=== PATIENT | female | born 1930 | race Caucasian/White ===

== ENCOUNTER 2017-11-15 14:16 | Inpatient (IN) | payer MEDICARE, OTHER ==
[~2017-11-15] VITALS: Ht 152.4 cm; Wt 50.0 kg
[~2017-11-15 14:16] MED LIST: ACET325S8 PO; BACT800T5 PO; TAB-TAB PO
[2017-11-15 14:24] VITALS: BP 157/82; PULSE 87; RESP 18; TEMP 97.9; O2SAT 92
[2017-11-15 15:00] VITALS: BP 132/60; PULSE 82; RESP 18; TEMP 98.3; O2SAT 92
[2017-11-15] MEDS ORDERED: SODIUM CHLORIDE 0.9% FLUSH 10 ML FLUSH IV FLUSH PRN ×2 (15:45→17:15)
--- NOTE | 2017-11-15 15:53 | PD ---
HPI Chief Complaint: Altered Mental Status Time Seen by Provider: 15:36 Travel History International Travel<30 days: No Contact w/Intl Traveler<30days: No Traveled to known affect area: No History of Present Illness HPI 87-year-old female patient with history of dementia presents to the ER today because family thought that she was looking more disoriented in the last few days and she has been having frequent urination. She currently denies any fevers, nausea, vomiting, or any other issues. Modifying Factors: None Associated Signs & Symptoms: Increased disorientation, frequent urination Risk Factors: None PFSH Past Medical History Cancer: Yes (bladder) Neurologic: Yes (weakness lower ext) Past Surgical History Appendectomy: Yes Social History Alcohol Use: Yes (wine nightly) Tobacco Use: No Substance Use: No Allergies-Medications (Allergen,Severity, Reaction): Coded Allergies: codeine (Unverified Adverse Reaction, Severe, Nausea/Vomiting, 06/12/17) hydromorphone (Unverified Adverse Reaction, Mild, Nausea/Vomiting, 06/12/17 ) Reported Meds & Prescriptions Reported Meds & Active Scripts Active Acetaminophen 325 Mg Tab 650 Mg PO Q6HR Bactrim DS (Sulfamethoxazole-Trimethoprim DS) 1 Tab Tab 1 Tab PO BID Reported Multivitamin (Multivitamins) 1 Tab Tab 1 Tab PO DAILY Review of Systems ROS Limitations: Altered Mental Status Physical Exam Narrative GENERAL: Well-developed pleasant elderly white female patient currently in no acute distress. Awake, alert. SKIN: Focused skin assessment warm/dry. HEAD: Atraumatic. Normocephalic. EYES: Pupils equal and round. No scleral icterus. No injection or drainage. ENT: No nasal bleeding or discharge. Mucous membranes pink and moist. NECK: Trachea midline. No JVD. Supple. CARDIOVASCULAR: Regular rate and rhythm. No murmur appreciated. RESPIRATORY: No accessory muscle use. Clear to auscultation. Breath sounds equal bilaterally. GASTROINTESTINAL: Abdomen soft, non-tender, nondistended. Hepatic and splenic margins not palpable. MUSCULOSKELETAL: No obvious deformities. No clubbing. No cyanosis. No edema. NEUROLOGICAL: Awake and alert. No obvious cranial nerve deficits. Motor grossly within normal limits. Normal speech. PSYCHIATRIC: Appropriate mood and affect; insight and judgment normal. Data Data Last Documented VS Vital Signs Date Time Temp Pulse Resp B/P (MAP) Pulse Ox O2 Delivery O2 Flow Rate FiO2 11/15/17 15:00 98.3 82 18 132/60 (84) 92 Room Air Orders Orders Electrocardiogram (11/15/17 15:33) Ammonia (11/15/17 15:33) Complete Blood Count With Diff (11/15/17 15:33) Comprehensive Metabolic Panel (11/15/17 15:33) Troponin I (11/15/17 15:33) Urinalysis - C+S If Indicated (11/15/17 15:33) Lactic Acid Sepsis Protocol (11/15/17 15:33) Blood Culture (11/15/17 15:33) Blood Glucose (11/15/17 15:33) Ecg Monitoring (11/15/17 15:33) Iv Access Insert/Monitor (11/15/17 15:33) Oximetry (11/15/17 15:33) Sodium Chloride 0.9% Flush (Ns Flush) (11/15/17 15:45) Chest, Single Ap (11/15/17 15:36) Urine Culture (11/15/17 15:42) Piperacil-Tazo 4.5 Gm Premix (Zosyn 4.5 (11/15/17 17:01) Admit Order (Ed Use Only) (11/15/17 17:09) Admit To Inpatient (11/15/17 ) Vital Signs (Adult) Q4H (11/15/17 17:08) Activity Oob With Assistance (11/15/17 17:08) Fabric Machine Operator / Telemetry .CONTINUOUS (11/15/17 17:08) Intake + Output QUIN.QSHIFT (11/15/17 17:08) Diet Heart Healthy (11/15/17 Dinner) Sodium Chlor 0.9% 1000 Ml Inj (Ns 1000 M (11/15/17 18:00) Sodium Chloride 0.9% Flush (Ns Flush) (11/15/17 17:15) Sodium Chloride 0.9% Flush (Ns Flush) (11/15/17 21:00) Acetaminophen (Tylenol) (11/15/17 17:15) Ondansetron Inj (Zofran Inj) (11/15/17 17:15) Scd Bilateral/Knee High QUIN.BID (11/15/17 17:08) Naloxone Inj (Narcan Inj) (11/15/17 17:15) Bisacodyl Supp (Dulcolax Supp) (11/15/17 17:15) Inpatient Certification (11/15/17 ) Consult Pt Eval & Tx Oob (11/15/17 17:10) Labs Laboratory Tests Test 11/15/17 15:42 White Blood Count 15.7 TH/MM3 Red Blood Count 4.36 MIL/MM3 Hemoglobin 13.9 GM/DL Hematocrit 41.2 % Mean Corpuscular Volume 94.5 FL Mean Corpuscular Hemoglobin 31.9 PG Mean Corpuscular Hemoglobin Concent 33.8 % Red Cell Distribution Width 13.8 % Platelet Count 190 TH/MM3 Mean Platelet Volume 9.5 FL Neutrophils (%) (Auto) 89.4 % Lymphocytes (%) (Auto) 3.9 % Monocytes (%) (Auto) 6.4 % Eosinophils (%) (Auto) 0.1 % Basophils (%) (Auto) 0.2 % Neutrophils # (Auto) 14.0 TH/MM3 Lymphocytes # (Auto) 0.6 TH/MM3 Monocytes # (Auto) 1.0 TH/MM3 Eosinophils # (Auto) 0.0 TH/MM3 Basophils # (Auto) 0.0 TH/MM3 CBC Comment DIFF FINAL Differential Comment Urine Color YELLOW Urine Turbidity HAZY Urine pH 6.0 Urine Specific [place] 1.015 Urine Protein 30 mg/dL Urine Glucose (UA) NEG mg/dL Urine Ketones 40 mg/dL Urine Occult Blood SMALL Urine Nitrite POS Urine Bilirubin NEG Urine Urobilinogen LESS THAN 2.0 MG/DL Urine Leukocyte Esterase LARGE Urine RBC 6 /hpf Urine WBC 155 /hpf Urine Amorphous Sediment RARE Urine Bacteria MANY /hpf Urine Mucus FEW /lpf Microscopic Urinalysis Comment CATH-CULTURE IND Blood Urea Nitrogen 11 MG/DL Creatinine 0.60 MG/DL Random Glucose 99 MG/DL Total Protein 7.4 GM/DL Albumin 3.7 GM/DL Calcium Level 8.7 MG/DL Alkaline Phosphatase 100 U/L Aspartate Amino Transf (AST/SGOT) 15 U/L Alanine Aminotransferase (ALT/SGPT) 16 U/L Total Bilirubin 0.7 MG/DL Sodium Level 137 MEQ/L Potassium Level 4.4 MEQ/L Chloride Level 101 MEQ/L Carbon Dioxide Level 26.7 MEQ/L Anion Gap 9 MEQ/L Estimat Glomerular Filtration Rate 95 ML/MIN Lactic Acid Level 1.0 mmol/L Ammonia 10 MCMOL/L Troponin I LESS THAN 0.02 NG/ML MDM Medical Decision Making Medical Screen Exam Complete: Yes Emergency Medical Condition: Yes Medical Record Reviewed: Yes Interpretation(s) EKG shows NSR, no ST elevation or depression, and no arrhythmias. No significant T-wave inversions. Laboratory Tests Test 11/15/17 15:42 White Blood Count 15.7 TH/MM3 (4.0-11.0) Neutrophils (%) (Auto) 89.4 % (16.0-70.0) Lymphocytes (%) (Auto) 3.9 % (9.0-44.0) Neutrophils # (Auto) 14.0 TH/MM3 (1.8-7.7) Lymphocytes # (Auto) 0.6 TH/MM3 (1.0-4.8) Monocytes # (Auto) 1.0 TH/MM3 (0-0.9) Urine Turbidity HAZY (CLEAR) Urine Protein 30 mg/dL (NEG-TRACE) Urine Ketones 40 mg/dL (NEG) Urine Occult Blood SMALL (NEG) Urine Nitrite POS (NEG) Urine Leukocyte Esterase LARGE (NEG) Urine RBC 6 /hpf (0-3) Urine WBC 155 /hpf (0-5) Urine Bacteria MANY /hpf (NONE) Urine Mucus FEW /lpf (OCC) Ammonia 10 MCMOL/L (11-32) Troponin I LESS THAN 0.02 NG/ML Last 24 hours Impressions Chest X-Ray 11/15/17 1536 Signed Impressions: Service Date/Time: October 15:50 - CONCLUSION: Normal examination. Killian Yoder MD Differential Diagnosis Increased disorientation, frequent urination: UTI versus metabolic issues versus medication side effect Narrative Course Lab work shows significant UTI, leukocytosis, and there is concern of underlying sepsis per IV and spouse were initiated after cultures were drawn. Case is discussed with Dr. Steele for admission. Diagnosis Primary Impression: UTI (urinary tract infection) Additional Impression: Sepsis Admitting Information Admitting Physician Requests: Admit Deepthi Li MD Nov 15, 2017 15:53
[2017-11-15 16:05] LABS: AMORPHOUS SEDIMENT, URINE RARE; BACTERIA, URINE MANY /hpf; BASOPHIL % 0.2 % (0.0-2.0); BILIRUBIN, URINE NEG (NEG); BLOOD, URINE SMALL (NEG); EOSINOPHIL % 0.1 % (0.0-4.0); GLUCOSE,URINE NEG (NEG); HEMATOCRIT 41.2 % (35.0-46.0); HEMOGLOBIN 13.9 GM/DL (11.6-15.3); KETONE, URINE 40 mg/dL (NEG); LYMPH % 3.9 % (9.0-44.0); LYMPHOCYTE # 0.6 TH/MM3 (1.0-4.8); MEAN CELL VOLUME 94.5 FL (80.0-100.0); MEAN CORPUSCULAR HEMOGLOBIN 31.9 PG (27.0-34.0); MEAN CORPUSCULAR HGB CONC 33.8 % (32.0-36.0); MEAN PLATELET VOLUME 9.5 FL (7.0-11.0); MONO % 6.4 % (0.0-8.0); MUCUS URINE FEW /lpf (OCC); NEUT % 89.4 % (16.0-70.0); NITRITE,URINE POS (NEG); PLATELET COUNT 190 TH/MM3 (150-450); RED BLOOD COUNT 4.36 MIL/MM3 (4.00-5.30); RED CELL DISTRIBUTION WIDTH 13.8 % (11.6-17.2); URINE COLOR YELLOW (YELLW/STRAW); URINE LEUKOCYTE ESTERASE LARGE (NEG); WHITE BLOOD COUNT 15.7 TH/MM3 (4.0-11.0)
--- NOTE | 2017-11-15 16:08 | RADRPT ---
EXAM DATE/TIME: 11/15/2017 15:50 [facility] COMPARISON: CHEST SINGLE AP, May 23, 2016, 12:46. INDICATIONS : General weakness. MEDICAL HISTORY : Bladder cancer. SURGICAL HISTORY : Appendectomy. Left total knee. ENCOUNTER: Initial ACUITY: 1 day PAIN SCORE: 0/10 LOCATION: Bilateral chest FINDINGS: A single view of the chest demonstrates the lungs to be symmetrically aerated without evidence of mas s, infiltrate or effusion. The cardiomediastinal contours are unremarkable. Osseous structures are intact. CONCLUSION: Normal examination. Killian Yoder MD on November 15, 2017 at 16:06 Board Certified Radiologist. This report was verified electronically.
[2017-11-15 16:45] LABS: ALBUMIN 3.7 GM/DL (3.4-5.0); ALT (GPT) 16 U/L (10-53); AST (GOT) 15 U/L (15-37); BICARBONATE 26.7 MEQ/L (21.0-32.0); BLOOD UREA NITROGEN 11 MG/DL (7-18); CALCIUM 8.7 MG/DL (8.5-10.1); CHLORIDE 101 MEQ/L (98-107); GLOMERULAR FILTRATION RATE 95 ML/MIN (>89); GLUCOSE,RANDOM 99 MG/DL (74-106); SODIUM (NA) 137 MEQ/L (136-145)
[2017-11-15 16:56] LABS: ALKALINE PHOSPHATASE 100 U/L (45-117); TOTAL BILIRUBIN ADULT 0.7 MG/DL (0.2-1.0); TOTAL PROTEIN 7.4 GM/DL (6.4-8.2); TROPONIN I LESS THAN 0.02 NG/ML (0.02-0.05)
[2017-11-15] MEDS ORDERED: PIPERACIL-TAZO 4.5 GM PREMIX 100 ML IV STA (17:01)
[2017-11-15] MEDS ORDERED: BISACODYL 10 MG SUPP RECTAL PRN (17:15)
[2017-11-15] MEDS ORDERED: ACETAMINOPHEN 325 MG TAB PO PRN (17:15)
[2017-11-15] MEDS ORDERED: NALOXONE HCL 0.4 MG/ML AMP IV PUSH PRN (17:15)
[2017-11-15] MEDS ORDERED: ONDANSETRON HCL 4 MG/2 ML VIAL IVP PRN (17:15)
[2017-11-15 17:30] VITALS: BP 137/74; PULSE 92; RESP 24; O2SAT 93
--- NOTE | 2017-11-15 18:44 | HHI.HP ---
[facility] Service [place] [facility] Primary Care Physician Aston Landry MD Admission Diagnosis UTI/altered mental status Diagnoses: Chief Complaint: Altered mental status Travel History International Travel<30 Days: No Contact w/Intl Traveler <30 Da: No Traveled to Known Affected Are: No History of Present Illness This is a 87-year-old female with a history of nonspecific degenerative neurological disease, difficulty ambulating, and dementia who presented with altered mental status. Patient is a poor historian secondary to dementia so history taken from daughter. Per patient's daughter patient at baseline has difficulty walking and is mainly in a wheelchair. She stated that when she tried to assist patient to the commode she was not able to follow any commands palpation to the ER. Patient has no complaints. She did not know why she was in ER. Patient was able to tell me her name but not the date and location. She does answer questions appropriately. Per patient's daughter after she was given antibiotics her altered mental status seems to resolve. In the emergency department workup was obtained in which UA suggest UTI. She was given a dose of Zosyn. All other review system reviewed and negative. 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 difficulty ambulating dementia History of bladder cancer in remission Past Surgical History Left knee replacement Appendectomy Reported Medications Reported Meds & Active Scripts Active Acetaminophen 325 Mg Tab 650 Mg PO Q6HR Bactrim DS (Sulfamethoxazole-Trimethoprim DS) 1 Tab Tab 1 Tab PO BID Reported Multivitamin (Multivitamins) 1 Tab Tab 1 Tab PO DAILY Allergies: Coded Allergies: codeine (Unverified Adverse Reaction, Severe, Nausea/Vomiting, 06/12/17) hydromorphone (Unverified Adverse Reaction, Mild, Nausea/Vomiting, 06/12/17 ) Active Ordered Medications Current Medications Sodium Chloride (NS Flush) 2 ml UNSCH PRN IV FLUSH FLUSH AFTER USING IV ACCESS ; Start 11/15/17 at 15:45; Stop 11/15/17 at 17:15; Status DC Piperacillin Sod/ Tazobactam Sod 100 ml @ 200 mls/hr ONCE STAT IV Last administered on 11/15/17at 17:12; Start 11/15/17 at 17:01; Stop 11/15/17 at 17:30 ; Status DC Sodium Chloride 1,000 ml @ 100 mls/hr Q10H IV ; Start 11/15/17 at 18:00 Sodium Chloride (NS Flush) 2 ml UNSCH PRN IV FLUSH FLUSH AFTER USING IV ACCESS ; Start 11/15/17 at 17:15 Sodium Chloride (NS Flush) 2 ml BID IV FLUSH ; Start 11/15/17 at 21:00 Acetaminophen (Tylenol) 650 mg Q4H PRN PO TEMP > 100.4; Start 11/15/17 at 17:15 Ondansetron HCl (Zofran Inj) 4 mg Q6H PRN IVP NAUSEA OR VOMITING; Start at 17:15 Naloxone HCl (Narcan Inj) 0.4 mg UNSCH PRN IV PUSH SEE LABEL COMMENTS; Start at 17:15 Bisacodyl (Dulcolax Supp) 10 mg DAILY PRN RECTAL SEVERE CONSITIPATION; Start at 17:15 Family History No past family history. Social History Patient lives at home with 24-hour assistance. She is homebound. Drinks a couple glasses of wine daily. Deny any tobacco or illicit drug use. Physical Exam Vital Signs Vital Signs Date Time Temp Pulse Resp B/P (MAP) Pulse Ox O2 Delivery O2 Flow Rate FiO2 11/15/17 17:30 92 24 137/74 (95) 93 Room Air 11/15/17 15:00 98.3 82 18 132/60 (84) 92 Room Air 11/15/17 14:24 97.9 87 18 157/82 (107) 92 Physical Exam GENERAL: This is a well-nourished, well-developed patient, in no apparent distress. SKIN: No rashes, ecchymoses or lesions. Cool and dry. HEAD: Atraumatic. Normocephalic. No temporal or scalp tenderness. EYES: Pupils equal round and reactive. Extraocular motions intact. No scleral icterus. No injection or drainage. ENT: Nose without bleeding, purulent drainage or septal hematoma. Throat without erythema, tonsillar hypertrophy or exudate. Uvula midline. Airway patent. NECK: Trachea midline. No JVD or lymphadenopathy. Supple, nontender, no meningeal signs. CARDIOVASCULAR: Regular rate and rhythm without murmurs, gallops, or rubs. RESPIRATORY: Clear to auscultation. Breath sounds equal bilaterally. No wheezes , rales, or rhonchi. GASTROINTESTINAL: Abdomen soft, non-tender, nondistended. No hepato-splenomegaly , or palpable masses. No guarding. MUSCULOSKELETAL: Extremities without clubbing, cyanosis, or edema. No joint tenderness, effusion, or edema noted. No calf tenderness. Negative Homans sign bilaterally. NEUROLOGICAL: Awake and alert. Cranial nerves II through XII intact. Motor and sensory grossly within normal limits. Five out of 5 muscle strength in all muscle groups. Normal speech. Laboratory Laboratory Tests Test 11/15/17 15:42 White Blood Count 15.7 Red Blood Count 4.36 Hemoglobin 13.9 Hematocrit 41.2 Mean Corpuscular Volume 94.5 Mean Corpuscular Hemoglobin 31.9 Mean Corpuscular Hemoglobin Concent 33.8 Red Cell Distribution Width 13.8 Platelet Count 190 Mean Platelet Volume 9.5 Neutrophils (%) (Auto) 89.4 Lymphocytes (%) (Auto) 3.9 Monocytes (%) (Auto) 6.4 Eosinophils (%) (Auto) 0.1 Basophils (%) (Auto) 0.2 Neutrophils # (Auto) 14.0 Lymphocytes # (Auto) 0.6 Monocytes # (Auto) 1.0 Eosinophils # (Auto) 0.0 Basophils # (Auto) 0.0 CBC Comment DIFF FINAL Differential Comment Urine Color YELLOW Urine Turbidity HAZY Urine pH 6.0 Urine Specific [place] 1.015 Urine Protein 30 Urine Glucose (UA) NEG Urine Ketones 40 Urine Occult Blood SMALL Urine Nitrite POS Urine Bilirubin NEG Urine Urobilinogen LESS THAN 2.0 Urine Leukocyte Esterase LARGE Urine RBC 6 Urine WBC 155 Urine Amorphous Sediment RARE Urine Bacteria MANY Urine Mucus FEW Microscopic Urinalysis Comment CATH-CULTURE IND Blood Urea Nitrogen 11 Creatinine 0.60 Random Glucose 99 Total Protein 7.4 Albumin 3.7 Calcium Level 8.7 Alkaline Phosphatase 100 Aspartate Amino Transf (AST/SGOT) 15 Alanine Aminotransferase (ALT/SGPT) 16 Total Bilirubin 0.7 Sodium Level 137 Potassium Level 4.4 Chloride Level 101 Carbon Dioxide Level 26.7 Anion Gap 9 Estimat Glomerular Filtration Rate 95 Lactic Acid Level 1.0 Ammonia 10 Troponin I LESS THAN 0.02 Date/Time Source Procedure Growth Status 11/15/17 15:42 Blood Peripheral Aerobic Blood Culture Pending Received 11/15/17 15:42 Blood Peripheral Anaerobic Blood Culture Pending Received 11/15/17 15:42 Urine Catheterized Urine Urine Culture Pending Received Result Diagram: 11/15/17 1542 11/15/17 1542 Imaging Last Impressions Chest X-Ray 11/15/17 1536 Signed Impressions: Service Date/Time: October 15:50 - CONCLUSION: Normal examination. MD Khalida Guerra VTE Risk Assessment Khalida VTE Risk Assessment: Mod/High Risk (score >= 2) Caprini Risk Assessment Model Point Value = 1 Point Value = 2 Point Value = 3 Point Value = 5 Age 41-60 Minor surgery BMI > 25 kg/m2 Swollen legs Varicose veins or History of unexplained or recurrent spontaneous Oral contraceptives or hormone replacement Sepsis (< 1 month) Serious lung disease, including pneumonia (< 1 month) Abnormal pulmonary function Acute myocardial infarction Congestive heart failure (< 1 month) History of inflammatory bowel disease Medical patient at bed rest Age 61-74 Arthroscopic surgery Major open surgery (> 45 min) Laparoscopic surgery (> 45 min) Malignancy Confined to bed (> 72 hours) Immobilizing plaster cast Central venous access Age >= 75 History of VTE Family history of VTE Factor V Leiden Prothrombin [id number] Lupus anticoagulant Anticardiolipin antibodies Elevated serum homocysteine Heparin-induced thrombocytopenia Other congenital or acquired thrombophilia Stroke (< 1 month) Elective arthroplasty Hip, pelvis, or leg fracture Acute spinal cord injury (< 1 month) Prophylaxis Regimen Total Risk Factor Score Risk Level Prophylaxis Regimen 0-1 Low Early ambulation 2 Moderate Order ONE of the following: *Sequential Compression Device (SCD) *Heparin 5000 units SQ BID 3-4 Higher Order ONE of the following medications: *Heparin 5000 units SQ TID *Enoxaparin/Lovenox 40 mg SQ daily (WT < 150 kg, CrCl > 30 mL/min) *Enoxaparin/Lovenox 30 mg SQ daily (WT < 150 kg, CrCl > 10-29 mL/min) *Enoxaparin/Lovenox 30 mg SQ BID (WT < 150 kg, CrCl > 30 mL/min) AND/OR *Sequential Compression Device (SCD) 5 or more Highest Order ONE of the following medications: *Heparin 5000 units SQ TID (Preferred with Epidurals) *Enoxaparin/Lovenox 40 mg SQ daily (WT < 150 kg, CrCl > 30 mL/min) *Enoxaparin/Lovenox 30 mg SQ daily (WT < 150 kg, CrCl > 10-29 mL/min) *Enoxaparin/Lovenox 30 mg SQ BID (WT < 150 kg, CrCl > 30 mL/min) AND *Sequential Compression Device (SCD) Assessment and Plan Assessment and Plan 87-year-old female with nonspecific degenerative neurological disease, difficulty ambulating, and dementia who presented with altered mental status. Metabolic encephalopathy -Chest x-ray negative. Labs reviewed significant for leukocytosis and UA suggesting UTI. Most likely symptoms secondary to UTI. Altered mental status seems to resolve quickly. Back to baseline. -Patient given a dose of Zosyn in the ED. Will start Rocephin pending urine cultures. Blood cultures were obtained in the ED. UTI -On Rocephin pending urine cultures. Macular degenerative disease/difficulty ambulating/dementia -Resume home medication. -Will give Seroquel when necessary for agitation if needed since patient does have a history of sundowning. DVT prophylaxis -Lovenox. Code Status CODE STATUS discussed with patient and daughter. Patient is full code. Discussed Condition With Patient and daughter. Physician Certification 2 Midnight Certification Type: Admission for Inpatient Services Order for Inpatient Services The services are ordered in accordance with Medicare regulations or non- Medicare payer requirements, as applicable. In the case of services not specified as inpatient-only, they are appropriately provided as inpatient services in accordance with the 2-midnight benchmark. Estimated LOS (days): 2 2 days is the estimated time the patient will need to remain in the hospital, assuming treatment plan goals are met and no additional complications. Post-Hospital Plan: Citlali Bob MD Nov 15, 2017 18:44
[2017-11-15] MEDS: MULTIVITAMIN TAB PO SCH (19:24)
--- NOTE | 2017-11-15 19:43 | EKG ---
Date Performed: 11/15/2017 Time Performed: 16:12:37 PTAGE: 87 years EKG: Sinus rhythm WITH OCCASIONAL SUPRAVENTRICULAR PREMATURE COMPLEXES POSSIBLE ANTERIOR MYOCARDIAL INFARCTION BORDERL INE ECG Compared to prior electrocardiogram, Premature atrial contraction are now present PREVIOUS TRACING : 05/23/2016 11.55 DOCTOR: Cyrus Tomlinson Interpretating Date/Time 11/15/2017 19:42:35
[2017-11-15 20:29] VITALS: BP 147/69; PULSE 95; RESP 16; O2SAT 94
[2017-11-15] MEDS: ENOXAPARIN SODIUM 40 MG/0.4 ML SYRINGE SQ SCH (20:43)
[2017-11-15] MEDS: cefTRIAXone INJ 1,000 MG in SODIUM CHLORIDE 0.9% INJ 100 ML IV SCH (20:44)
[2017-11-15] MEDS: SODIUM CHLORIDE 0.9% FLUSH 10 ML FLUSH IV FLUSH SCH (20:48)
[2017-11-15 23:24] VITALS: BP 132/69; PULSE 83; RESP 17; TEMP 99.4; O2SAT 95
[2017-11-15] MEDS: SODIUM CHLOR 0.9% 1000 ML INJ 1,000 ML IV SCH (23:56)
[2017-11-16] VITALS (10 sets, daily range): BP systolic 117–136; BP diastolic 57–67; PULSE 75–109; RESP 17–19; TEMP 97.7–99.4; O2SAT 92–94
[2017-11-16] MEDS: SODIUM CHLOR 0.9% 1000 ML INJ 1,000 ML IV SCH ×2 (03:15→14:57)
[2017-11-16 06:15] LABS: HEMATOCRIT 37.4 % (35.0-46.0); HEMOGLOBIN 12.9 GM/DL (11.6-15.3); MEAN CELL VOLUME 95.3 FL (80.0-100.0); MEAN CORPUSCULAR HEMOGLOBIN 32.8 PG (27.0-34.0); MEAN CORPUSCULAR HGB CONC 34.4 % (32.0-36.0); MEAN PLATELET VOLUME 10.3 FL (7.0-11.0); PLATELET COUNT 185 TH/MM3 (150-450); RED BLOOD COUNT 3.92 MIL/MM3 (4.00-5.30); RED CELL DISTRIBUTION WIDTH 13.8 % (11.6-17.2)
[2017-11-16 06:39] LABS: CALCIUM 8.8 MG/DL (8.5-10.1); CREATININE 0.53 MG/DL (0.50-1.00)
[2017-11-16] MEDS: SODIUM CHLORIDE 0.9% FLUSH 10 ML FLUSH IV FLUSH SCH ×2 (09:00→20:27)
[2017-11-16] MEDS: MULTIVITAMIN TAB PO SCH (09:58)
--- NOTE | 2017-11-16 18:09 | HHI.PR ---
Subjective Remarks She says she is feeling better today. Family reports the confusion is improved. Weakness has improved as well. She denies any dysuria. Discussed with family reports the patient has 24 7 caregivers at home. Appreciate PT assistance. Objective Vital Signs Date Time Temp Pulse Resp B/P (MAP) Pulse Ox O2 Delivery O2 Flow Rate FiO2 11/16/17 15:03 99.0 84 18 131/64 (86) 94 11/16/17 11:15 97.7 80 18 118/62 (80) 92 11/16/17 07:50 75 11/16/17 07:04 99.3 95 18 118/57 (77) 94 11/16/17 04:19 99.4 93 17 117/62 (80) 94 11/16/17 03:59 109 11/15/17 23:24 99.4 83 17 132/69 (90) 95 11/15/17 20:29 95 16 147/69 (95) 94 Room Air I/O 11/15/17 11/15/17 11/15/17 11/16/17 11/16/17 11/16/17 07:00 15:00 23:00 07:00 15:00 23:00 Intake Total 200 ml Balance 200 ml Intake IV Total 200 ml # Voids 2 Result Diagram: 11/16/17 0347 11/16/17 034 Objective Remarks GENERAL: Patient sitting up in bed. Appears comfortable. SKIN: Warm and dry. HEAD: Normocephalic. EYES: No scleral icterus. No injection or drainage. NECK: Supple, trachea midline. No JVD. CARDIOVASCULAR: Regular rate and rhythm without murmurs, gallops, or rubs. RESPIRATORY: Breath sounds equal bilaterally. No accessory muscle use. GASTROINTESTINAL: Abdomen soft, non-tender, nondistended. MUSCULOSKELETAL: No cyanosis, or edema. BACK: Nontender without obvious deformity. No CVA tenderness. A/P Assessment and Plan 87-year-old female with nonspecific degenerative neurological disease, difficulty ambulating, and dementia who presented with altered mental status. //Severe sepsis on admission -With leukocytosis, tachycardia, UTI on admission. encephalopathy -Continue Rocephin. Improving Follow-up cultures and sensitivities //UTI -On Rocephin pending urine cultures. = Follow-up cultures and sensitivities. Continue antibiotics //Metabolic encephalopathy Secondary to sepsis as above. Appears resolved at this time. //Macular degenerative disease/difficulty ambulating/dementia -Resume home medication. -Will give Seroquel when necessary for agitation if needed since patient does have a history of sundowning. DVT prophylaxis -Lovenox. Code Status CODE STATUS discussed with patient and daughter. Patient is full code. Discharge Planning Discharge home in 1-2 days once we have sensitivities on urine. Bruce Cruz MD Nov 16, 2017 18:09
[2017-11-16] MEDS: cefTRIAXone INJ 1,000 MG in SODIUM CHLORIDE 0.9% INJ 100 ML IV SCH (20:27)
[2017-11-16] MEDS: ENOXAPARIN SODIUM 40 MG/0.4 ML SYRINGE SQ SCH (20:27)
[2017-11-17] VITALS (8 sets, daily range): BP systolic 125–136; BP diastolic 62–73; PULSE 67–78; RESP 16–20; TEMP 98–98.3; O2SAT 93–97
[2017-11-17] MEDS: SODIUM CHLORIDE 0.9% FLUSH 10 ML FLUSH IV FLUSH SCH (09:00)
[2017-11-17] MEDS: MULTIVITAMIN TAB PO SCH (09:41)
[2017-11-17] MEDS: SODIUM CHLOR 0.9% 1000 ML INJ 1,000 ML IV SCH ×2 (09:42)
[2017-11-17] MEDS ORDERED: CIPR250T52 PO (16:06)
--- NOTE | 2017-11-17 16:26 | HHI.FF ---
Face to Face Verification Diagnosis: (1) UTI (urinary tract infection) (2) Unsteady gait Physical Therapy Order: Evaluate and Treat Home Health Nursing Order: Nursing assessment with vital signs Home Health Aide Order: To Assist In: Bathing and personal care I have seen patient Jillian Garza on 11/17/17. My clinical findings support the need for the requested home health care services because: Deconditioned w/ increased weakness Med compliance is questionable I certify that my clinical findings support that this patient is homebound because: Unsafe to leave home unassisted resume home health Bruce Cruz MD Nov 17, 2017 16:26
[2017-11-17] MEDS ORDERED: CIPROFLOXACIN 500 MG TAB PO ONE (16:45)
--- NOTE | 2017-11-17 16:48 | HHI.PR ---
Subjective Remarks Patient says she is feeling well. Denies any chest pain shortness breath. Denies any nausea or vomiting. Denies any dysuria. Discussed with daughter over the phone who agrees with discharge home with [address] [place] [id number]. Objective Vital Signs Date Time Temp Pulse Resp B/P (MAP) Pulse Ox O2 Delivery O2 Flow Rate FiO2 11/17/17 16:14 98.1 67 18 135/71 (92) 93 11/17/17 15:07 74 11/17/17 15:06 Room Air 11/17/17 11:09 98.0 74 18 136/73 (94) 94 11/17/17 09:40 78 11/17/17 07:35 98.3 74 20 125/62 (83) 97 11/17/17 04:25 98.3 72 16 133/65 (87) 95 11/16/17 23:46 98.6 93 19 136/66 (89) 94 11/16/17 19:54 99.2 85 17 131/67 (88) 94 11/16/17 18:01 80 I/O 11/16/17 11/16/17 11/16/17 11/17/17 11/17/17 11/17/17 07:00 15:00 23:00 07:00 15:00 23:00 Intake Total 0 ml Balance 0 ml Intake Oral 0 ml # Voids 3 Result Diagram: 11/16/1734611/16/17346 Objective Remarks GENERAL: Patient sitting up in bed. Appears comfortable. Exam unchanged. SKIN: Warm and dry. HEAD: Normocephalic. EYES: No scleral icterus. No injection or drainage. NECK: Supple, trachea midline. No JVD. CARDIOVASCULAR: Regular rate and rhythm without murmurs, gallops, or rubs. RESPIRATORY: Breath sounds equal bilaterally. No accessory muscle use. GASTROINTESTINAL: Abdomen soft, non-tender, nondistended. MUSCULOSKELETAL: No cyanosis, or edema. BACK: Nontender without obvious deformity. No CVA tenderness. A/P Assessment and Plan 87-year-old female with nonspecific degenerative neurological disease, difficulty ambulating, and dementia who presented with altered mental status. //Severe sepsis on admission -With leukocytosis, tachycardia, UTI on admission. encephalopathy -Continue Rocephin. Improving -Afebrile. Urine Cultures with Escherichia coli sensitive to Cipro. Only resistant to ampicillin. //UTI -On Rocephin pending urine cultures. = Follow-up cultures and sensitivities. Continue antibiotics = Cultures as above. Continue Cipro to complete treatment course. //Metabolic encephalopathy //With history of chronic dementia per family. Secondary to sepsis as above. Appears resolved at this time. //Macular degenerative disease/difficulty ambulating/dementia -Resume home medication. -Will give Seroquel when necessary for agitation if needed since patient does have a history of sundowning. DVT prophylaxis -Lovenox. Code Status CODE STATUS discussed with patient and daughter. Patient is full code. Discharge Planning Discharge home with home health. Bruce Cruz MD Nov 17, 2017 16:48
--- NOTE | 2017-11-17 16:51 | HHI.DS ---
Discharge Summary Admission Date Nov 15, 2017 at 17:11 Discharge Date: Nov 17, 2017 Admitting Diagnosis UTI/altered mental status (1) Sepsis ICD Code: A41.9 - Sepsis, unspecified organism Status: Acute (2) UTI (urinary tract infection) ICD Code: N39.0 - Urinary tract infection, site not specified Status: Acute Procedures No invasive procedures. Brief History - From Admission This is a 87-year-old female with a history of nonspecific degenerative neurological disease, difficulty ambulating, and dementia who presented with altered mental status. Patient is a poor historian secondary to dementia so history taken from daughter. Per patient's daughter patient at baseline has difficulty walking and is mainly in a wheelchair. She stated that when she tried to assist patient to the commode she was not able to follow any commands palpation to the ER. Patient has no complaints. She did not know why she was in ER. Patient was able to tell me her name but not the date and location. She does answer questions appropriately. Per patient's daughter after she was given antibiotics her altered mental status seems to resolve. In the emergency department workup was obtained in which UA suggest UTI. She was given a dose of Zosyn. All other review system reviewed and negative. CBC/BMP: 11/16/17 0347 11/16/17 0347 Significant Findings Laboratory Tests Test 11/15/17 15:42 11/16/17 03:47 White Blood Count 15.7 TH/MM3 (4.0-11.0) 12.0 TH/MM3 (4.0-11.0) Neutrophils (%) (Auto) 89.4 % (16.0-70.0) Lymphocytes (%) (Auto) 3.9 % (9.0-44.0) Neutrophils # (Auto) 14.0 TH/MM3 (1.8-7.7) Lymphocytes # (Auto) 0.6 TH/MM3 (1.0-4.8) Monocytes # (Auto) 1.0 TH/MM3 (0-0.9) Urine Turbidity HAZY (CLEAR) Urine Protein 30 mg/dL (NEG-TRACE) Urine Ketones 40 mg/dL (NEG) Urine Occult Blood SMALL (NEG) Urine Nitrite POS (NEG) Urine Leukocyte Esterase LARGE (NEG) Urine RBC 6 /hpf (0-3) Urine WBC 155 /hpf (0-5) Urine Bacteria MANY /hpf (NONE) Urine Mucus FEW /lpf (OCC) Ammonia 10 MCMOL/L (11-32) Troponin I LESS THAN 0.02 NG/ML Red Blood Count 3.92 MIL/MM3 (4.00-5.30) Imaging Last Impressions Chest X-Ray 11/15/17 7826 Signed Impressions: Service Date/Time: October 15:50 - CONCLUSION: Normal examination. Killian Yoder MD Hospital Course 87-year-old female with nonspecific degenerative neurological disease, difficulty ambulating, and dementia who presented with confusion, leukocytosis, tachycardia, with UTI on urinalysis, which eventually grew out Escherichia coli sensitive to Cipro. Patient was treated with broad-spectrum antibiotics with improvement in sepsis, returned to baseline mental status. Physical therapy saw the patient and recommends shelter facility, however patient has 24 7 nursing care at home. Per discussion with family, will discharge home with home health. Ciprofloxacin to complete treatment course. For problem-based summary from most recent progress note, please see below.. //Severe sepsis on admission -With leukocytosis, tachycardia, UTI on admission. encephalopathy -Continue Rocephin. Improving -Afebrile. Urine Cultures with Escherichia coli sensitive to Cipro. Only resistant to ampicillin. //UTI -On Rocephin pending urine cultures. = Follow-up cultures and sensitivities. Continue antibiotics = Cultures as above. Continue Cipro to complete treatment course. //Metabolic encephalopathy //With history of chronic dementia per family. Secondary to sepsis as above. Appears resolved at this time. //Macular degenerative disease/difficulty ambulating/dementia -Resume home medication. -Will give Seroquel when necessary for agitation if needed since patient does have a history of . DVT prophylaxis -Lovenox. Code Status CODE STATUS discussed with patient and daughter. Patient is full code. Pt Condition on Discharge: Good Discharge Disposition: Disch w/ Home Health Serv Discharge Time: > 30 minutes Discharge Instructions DIET: Follow Instructions for: Heart Healthy Diet Activities you can perform: Regular-No Restrictions Follow up Referrals: PCP Follow-up - 1 Week with Aston Landry MD New Medications: Ciprofloxacin (Cipro) 250 Mg Tab 250 MG PO BID for Infection for 9 Days, #18 TAB 0 Refills Continued Medications: Acetaminophen (Tylenol) 325 Mg Tab 650 MG PO Q6HR, #20 TAB Multiple Vitamin (Multivitamin) 1 Tab Tab 1 TAB PO DAILY, TAB Discontinued Medications: Sulfamethoxazole-Trimethoprim DS (Bactrim DS) 1 Tab Tab 1 TAB PO BID, #20 TAB Bruce Cruz MD Nov 17, 2017 16:51
[2017-11-17] MEDS ORDERED: CIPROFLOXACIN 250 MG TAB PO SCH (21:00)
[2017-11-18] MEDS ORDERED: CIPROFLOXACIN 250 MG TAB PO SCH (09:00)
== END 2017-11-17 18:45 | disposition home health service (06) | DRG 871 ==
LOC: NEPE 14:16 → NEDA 17:11 → NEDH 21:11 → NEPFCDU 22:37 → N04B 11-17 13:50
PROVIDERS: ADMIT Internal Medicine; ATTEND Internal Medicine
DX: A41.51 Sepsis due to Escherichia coli [E. coli] (principal); G93.41 Metabolic encephalopathy; F03.90 Unspecified dementia, unspecified severity, without behavioral disturbance, psychotic disturbance, mood disturbance, and anxiety; N39.0 Urinary tract infection, site not specified; R65.20 Severe sepsis without septic shock; B96.20 Unspecified Escherichia coli [E. coli] as the cause of diseases classified elsewhere; R26.2 Difficulty in walking, not elsewhere classified; Z96.652 Presence of left artificial knee joint; G70.9 Myoneural disorder, unspecified; Z16.11 Resistance to penicillins; R00.0 Tachycardia, unspecified; R53.1 Weakness; Z85.51 Personal history of malignant neoplasm of bladder
CPT/HCPCS: 71045; 80048; 80053; 81001; 82140; 83605; 84484; 85025; 85027; 87040; 87077; 87086; 87186; 93005; 99285; J0696; J1650; J2543; J7030

== ENCOUNTER 2018-02-08 21:46 | Emergency (ER) | payer MEDICARE, OTHER ==
[~2018-02-08 21:46] MED LIST changes: -BACT800T5 PO; +CIPR250T52 PO
[2018-02-08 22:14] VITALS: BP 138/86; PULSE 94; RESP 20; TEMP 98.7; O2SAT 95
[2018-02-08] MEDS ORDERED: guaiFENesin/DEXTROMETHORPHAN 200 MG/20 MG/10 ML CUP PO ONE (23:30)
--- NOTE | 2018-02-08 23:32 | PD ---
HPI Chief Complaint: Respiratory Symptoms Time Seen by Provider: 23:19 Travel History International Travel<30 days: No Contact w/Intl Traveler<30days: No Traveled to known affect area: No History of Present Illness HPI The patient is an 87-year-old female that is had a cough and nasal congestion. She has had this for several days. She gets home health care 24 7 at her home and a nurse was called out and found nasal congestion. She was given something for nasal congestion. The patient vomited after she took this medicine and refused to take anymore. The patient is here because of the refusal to take medicine at home. She has not had any fever or respiratory distress. PFSH Past Medical History Anxiety: No Depression: No Cancer: Yes (bladder) Cardiovascular Problems: No Cerebrovascular Accident: No Endocrine: No Genitourinary: Yes Immune Disorder: No Musculoskeletal: No Neurologic: Yes (weakness lower ext (peridoically)) Psychiatric: Yes (dementia) Respiratory: No Migraines: No Seizures: No Past Surgical History Abdominal Surgery: Yes (appendectomy) Appendectomy: Yes Cardiac Surgery: No Ear Surgery: No Endocrine Surgery: No Eye Surgery: No Genitourinary Surgery: No Gynecologic Surgery: No Oral Surgery: No Thoracic Surgery: No Social History Alcohol Use: Yes (wine nightly) Tobacco Use: No Substance Use: No Allergies-Medications (Allergen,Severity, Reaction): Coded Allergies: codeine (Unverified Adverse Reaction, Severe, Nausea/Vomiting, 02/09/18) hydromorphone (Unverified Adverse Reaction, Mild, Nausea/Vomiting, 02/09/18 ) Reported Meds & Prescriptions Reported Meds & Active Scripts Active Reported Multi Vitamin Daily (Multiple Vitamin) 1 Tab Tab Review of Systems Except as stated in HPI: all other systems reviewed are Neg Physical Exam Narrative GENERAL: Well-nourished, alert and oriented well-developed patient in no respiratory distress. Her vital signs are normal except for a pulse rate of 94.. SKIN: Focused skin assessment warm/dry. HEAD: Normocephalic. EYES: No scleral icterus. No injection or drainage. NECK: Supple, trachea midline. No JVD or lymphadenopathy. CARDIOVASCULAR: Regular rate and rhythm without murmurs, gallops, or rubs. RESPIRATORY: Breath sounds equal bilaterally. No accessory muscle use. Lungs clear to auscultation bilaterally. GASTROINTESTINAL: Abdomen soft, non-tender, nondistended. MUSCULOSKELETAL: No cyanosis, or edema. BACK: Nontender without obvious deformity. No CVA tenderness. Data Data Last Documented VS Vital Signs Date Time Temp Pulse Resp B/P (MAP) Pulse Ox O2 Delivery O2 Flow Rate FiO2 02/08/18 23:55 20 95 02/08/18 22:14 98.7 94 138/86 (103) Orders Orders Guaifen-Dm 200-20 Mg/10 Ml Liq (Robituss (02/08/18 23:30) Chest, Pa & Lat (02/08/18 23:32) MDM Medical Decision Making Medical Screen Exam Complete: Yes Emergency Medical Condition: Yes Medical Record Reviewed: Yes Interpretation(s) The chest x-ray shows no acute cardiopulmonary disease. Differential Diagnosis Pneumonia, bronchitis, aspiration pneumonia, noncompliance to medication, viral syndrome Narrative Course The patient took the cough syrup without a problem. The chest x-ray does not show any evidence of aspiration pneumonia or any other pneumonia. Diagnosis Primary Impression: Viral syndrome Additional Instructions: At this time she appears to be quite cooperative and takes her medicine correctly. The cough syrup is 10 cc every 4 hours as needed for cough. There is no evidence for aspiration pneumonia or other pneumonia on the chest x-ray. Follow-up with her primary care physician next week. Med/Other Pt SpecificInfo: Prescription(s) given Scripts Guaifenesin-Dextromethorphan Liq (Guaifenesin DM Liq) 10-100 Mg/5 Ml Liq 10 ML PO Q4H Y for COUGH, #1 BOTTLE 0 Refills Prov: Alex Cruz MD 02/09/18 Disposition: 01 DISCHARGE HOME Condition: Stable Alex Cruz MD Feb 08, 2018 23:32
[2018-02-09] MEDS ORDERED: MULT1TAB46 (00:07)
--- NOTE | 2018-02-09 00:15 | RADRPT ---
EXAM DATE/TIME: 02/08/2018 23:46 [facility] COMPARISON: CHEST SINGLE AP, November 15, 2017, 15:50. INDICATIONS : Cough. MEDICAL HISTORY : Carcinoma, bladder. SURGICAL HISTORY : Appendectomy. Left total knee ENCOUNTER: Initial ACUITY: 1 week PAIN SCORE: 0/10 LOCATION: Bilateral chest FINDINGS: The cardiac silhouette is normal in transverse diameter. The lungs are free of acute parenchymal opac ity. No effusions are identified. There is prominence of the aortic knob is with calcification charac teristic of atherosclerotic vascular disease. CONCLUSION: Cardiomegaly. No acute pulmonary disease. Joon Ortiz MD on February 09, 2018 at 0:12 Board Certified Radiologist. This report was verified electronically.
[2018-02-09] MEDS ORDERED: GUAISYP7 PO (00:31)
[2018-02-09 01:27] VITALS: BP 142/74
== END 2018-02-09 01:28 | disposition home or self-care (01) ==
LOC: PHED 21:46
DX: B34.9 Viral infection, unspecified (principal); F03.90 Unspecified dementia, unspecified severity, without behavioral disturbance, psychotic disturbance, mood disturbance, and anxiety; Z85.51 Personal history of malignant neoplasm of bladder; Z88.5 Allergy status to narcotic agent
CPT/HCPCS: 71046; 99283

== ENCOUNTER 2018-03-01 15:29 | Emergency (ER) | payer MEDICARE, OTHER ==
[~2018-03-01] VITALS: Ht 152.4 cm; Wt 50.0 kg
[~2018-03-01 15:29] MED LIST changes: -ACET325S8 PO; -CIPR250T52 PO; +GUAISYP7 PO; +MULT1TAB46; -TAB-TAB PO
[2018-03-01 15:52] VITALS: BP 133/72; PULSE 67; RESP 17; TEMP 98.2; O2SAT 97
--- NOTE | 2018-03-01 16:17 | PD ---
HPI Chief Complaint: Fall Time Seen by Provider: 15:37 Travel History International Travel<30 days: No Contact w/Intl Traveler<30days: No Traveled to known affect area: No History of Present Illness HPI 87-year-old female that presents to the ED for evaluation of mechanical fall. Apparently patient had a fall 2 days ago and landed on her tailbone. She has been complaining of tailbone pain since. She has a history of dementia but is able to answer some questions. She states that she has pain only in her tailbone and her lower back. Denies any urinary or bowel movement issues. She does have a history of pelvic fractures in the past. Per report I was given patient is somewhat ambulatory but not completely. She does have a wheelchair that she uses frequently. She denies hitting her head or losing consciousness. No sign of head trauma per report I was given. Patient states that her pain is 6 out of 10. States having prior fractures. Has not seen anybody for this. No neck pain. No arm pain or leg pain. No hip pain itself. She is able to move the legs fully. She denies taking blood thinners. Allergies to codeine and hydromorphone. Patient came here by ambulance for evaluation of this. PFSH Past Medical History Depression: No Cancer: Yes (BLADDER) Dementia: Yes Genitourinary: Yes Neurologic: Yes (LOWER EXTREMITY WEAKNESS) Psychiatric: Yes (DEMENTIA) Respiratory: No Past Surgical History Abdominal Surgery: Yes Appendectomy: Yes Cardiac Surgery: No Ear Surgery: No Endocrine Surgery: No Eye Surgery: No Genitourinary Surgery: No Gynecologic Surgery: No Oral Surgery: No Thoracic Surgery: No Other Surgery: Yes Social History Alcohol Use: No Tobacco Use: No Substance Use: No Allergies-Medications (Allergen,Severity, Reaction): Coded Allergies: codeine (Unverified Adverse Reaction, Severe, Nausea/Vomiting, 03/01/18) hydromorphone (Unverified Adverse Reaction, Mild, Nausea/Vomiting, 03/01/18) Reported Meds & Prescriptions Reported Meds & Active Scripts Active Reported Multi Vitamin Daily (Multiple Vitamin) 1 Tab Tab Review of Systems Except as stated in HPI: all other systems reviewed are Neg Physical Exam Narrative GENERAL: SKIN: Warm and dry. HEAD: Atraumatic. Normocephalic. EYES: Pupils equal and round. No scleral icterus. No injection or drainage. ENT: No nasal bleeding or discharge. Mucous membranes pink and moist. Tongue is midline. No uvula deviation. NECK: Trachea midline. No JVD. CARDIOVASCULAR: Regular rate and rhythm. No murmurs, S3, S4. RESPIRATORY: No accessory muscle use. Clear to auscultation. Breath sounds equal bilaterally. GASTROINTESTINAL: Abdomen soft, non-tender, nondistended. Hepatic and splenic margins not palpable. MUSCULOSKELETAL: Extremities without clubbing, cyanosis, or edema. No obvious deformities. Full range of motion of the upper and lower extremities bilaterally. 2+ pulses bilaterally. Tender to palpation on the lower lumbar and tailbone area. Able to move the hips fully with no pain. No deformity noted. NEUROLOGICAL: Awake and alert. No obvious cranial nerve deficits. Motor grossly within normal limits. Five out of 5 muscle strength in the arms and legs. Normal speech. PSYCHIATRIC: Appropriate mood and affect; insight and judgment normal. Data Data Last Documented VS Vital Signs Date Time Temp Pulse Resp B/P (MAP) Pulse Ox O2 Delivery O2 Flow Rate FiO2 03/01/18 15:52 98.2 67 17 133/72 (92) 97 Room Air Orders Orders Ct Pelvis W/O Iv Contrast (03/01/18 ) Ct Lumb Spine W/O Contrast (03/01/18 ) MDM Medical Decision Making Medical Screen Exam Complete: Yes Emergency Medical Condition: Yes Medical Record Reviewed: Yes Interpretation(s) CT of the pelvis showed no sign of injury. CT of the lumbar spine did showed multiple what appear to be chronic abnormalities. Patient does have a T12 fracture that has been present before in 2016. Patient also has appears to be a mild L4 and L5 fracture. She does have a couple kidney stones as well as a cyst on the right ovary which radiologist recommended ultrasound. MRI was recommended if concern for chronicity. Differential Diagnosis Fracture versus bruise versus contusion versus fall Narrative Course 87-year-old female that presents to the ED for evaluation of fall. Patient was properly examined and was found to have signs and symptoms consistent with appears to be fall. Concerning for fractures. CT is ordered. CT was negative for acute disease alert and what appears to be an L4 and L5 compression fracture which could be new the patient has no pain in this area. All her pain appears to be in the sacrum and buttocks area rather than the spine processes. She has good sensation and good range of motion of the lower extremities. Case was discussed with my attending Dr Fagan who was made aware of findings and agrees with discharge. I had a discussion with the family and patient and I do recommend trial of Tylenol and Motrin for now. Do not recommend narcotics for her age and her dementia. I did discuss the results of the scan including the cyst, compression fractures in the kidney stones. I do recommend that the follow-up outpatient for the cyst with an ultrasound with primary care doctor. Because patient has no tenderness to palpation on the spinous processes I do not believe that the L5 and L4 compression fracture may be new rather may be old. She is neurovascularly intact otherwise. Family was aware of the T12 fracture. Family feels comfortable taking patient home. Okay to be discharged. Follow-up with PCP. See ED if worsening symptoms. Diagnosis Primary Impression: Sacral contusion Qualified Codes: S30.0XXA - Contusion of lower back and pelvis, initial encounter Additional Impression: Ovarian cyst Qualified Codes: N83.201 - Unspecified ovarian cyst, right side Patient Instructions: General Instructions Additional Instructions: Get oval cushion to help with pain. Tylenol up to 400 mg q 6/8 hrs as needed. Motrin 400 mg up to 600 mg q6/8hrs as needed. Ice or heat as needed. F/u with PCP for evaluation if pain continues and for evaluation of ovarian cyst. See ED if worst. Disposition: 01 DISCHARGE HOME Condition: Stable Kwame Matias March 01, 2018 16:16
--- NOTE | 2018-03-01 17:44 | RADRPT ---
EXAM DATE/TIME: 03/01/2018 17:15 [facility] COMPARISON: No previous studies available for comparison. INDICATIONS : Trauma. Fall. ORAL CONTRAST: No oral contrast ingested. RADIATION DOSE: 10.55 CTDIvol (mGy) MEDICAL HISTORY : None SURGICAL HISTORY : None. ENCOUNTER: Initial ACUITY: 1 day PAIN SCALE: 10/10 LOCATION: Bilateral pelvis TECHNIQUE: Volumetric scanning of the pelvis was performed. Using automated exposure control and adjustment of the mA and/or kV according to patient size, radiation dose was kept as low as reasonably achievable t o obtain optimal diagnostic quality images. DICOM format image data is available electronically for review and comparison. FINDINGS: Bones are osteopenic. There mild degenerative changes about both SI joints without sacral fracture. Alignment is anatomic about both hips. Deformity of the right symphysis pubis is evident from presum ed old trauma. Paget's is thought to be less likely. Extensive vascular calcification. Mildly prominent uterus with 2.3 cm adnexal cyst on the right, abnormal and 87 year-old. CONCLUSION: Negative for fracture. I don't see inflammatory changes. 2.3 cm cyst on the right. Felix Greenfield MD FACR on March 01, 2018 at 17:40 Board Certified Radiologist. This report was verified electronically.
--- NOTE | 2018-03-01 18:03 | RADRPT ---
EXAM DATE/TIME: 03/01/2018 17:15 [facility] COMPARISON: CHEST PA & LAT, February 08, 2018, 23:46. SPINE LUMBAR LTD (AP & LAT), May 23, 2016, 12:47. INDICATIONS : Trauma. Fall. RADIATION DOSE: 19.87 CTDIvol (mGy) MEDICAL HISTORY : None SURGICAL HISTORY : None. ENCOUNTER: Initial ACUITY: 1 day PAIN SCALE: 10/10 LOCATION: Lower back TECHNIQUE: Volumetric scanning of the lumbar spine was performed. Multiplanar reconstructions in the sagittal, coronal and oblique axial planes were performed. Using automated exposure control and adjustment of the mA and/or kV according to patient size, radiation dose was kept as low as reasonably achievable t o obtain optimal diagnostic quality images. DICOM format image data is available electronically for review and comparison. FINDINGS: There is near vertebra plana of T12. Remote previous exam demonstrates mild compression deformity at T12. There are mild compression deformities of L4 and L5. Remote previous exam demonstrates no signif icant fracture at these levels. Sagittal alignment is maintained. No significant prevertebral soft ti ssue hematoma. Prominent multilevel degenerative spondylosis of the lumbar spine most prominently at L3-5 with disc space loss, diffuse disc bulge and facet arthropathy. There is mild effacement of the right anterior lateral recess at L3-4. Bony central canal otherwise appears patent. Prevertebral soft tissues demonstrate 3 mm calyceal calcification in the superior pole the right kidney. There is also a peripherally calcified low density lesion in the inferior pole the left kidney. Aorta is diffusely calcified. There is a 2.6 x 2.2 cm right adnexal cyst. CONCLUSION: 1. Progressive T12 compression deformity since remote April 2016 examination to near vertebra plana on current exam. 2. Mild endplate compression deformities of L4 and L5, new since remote April 2016 examination. 3. Chronicity cannot be established given lack of more recent exams. MRI examination may be performed to evaluate for bone marrow edema particularly if patient has focal tenderness on palpation of the s pinous processes at these levels. 4. Advanced multilevel degenerative spondylosis of the lumbar spine most prominent at L3-5 with mild effacement of the right anterolateral recess at L3-4. 5. 2.6 x 2.2 cm right adnexal cyst. This is likely ovarian and may be abnormal given patient's age. C onsider further evaluation with ultrasound exam on an outpatient basis. The 6. 3 mm nonobstructing calyceal calculus in the superior pole of the right kidney. 7. Peripherally calcified low density lesion in the inferior pole of the left kidney, likely a comple x cyst. Christian Douglas MD on March 01, 2018 at 17:52 Board Certified Radiologist. This report was verified electronically.
[2018-03-01 18:30] VITALS: BP 159/87; PULSE 69; RESP 20; O2SAT 96
== END 2018-03-01 18:52 | disposition home or self-care (01) ==
LOC: NEPC 15:29
DX: S30.0XXA Contusion of lower back and pelvis, initial encounter (principal); N83.201 Unspecified ovarian cyst, right side; N85.8 Other specified noninflammatory disorders of uterus; F03.90 Unspecified dementia, unspecified severity, without behavioral disturbance, psychotic disturbance, mood disturbance, and anxiety; M43.06 Spondylolysis, lumbar region; N20.0 Calculus of kidney; W19.XXXA Unspecified fall, initial encounter; Z88.5 Allergy status to narcotic agent
CPT/HCPCS: 72131; 72192